=== PATIENT | female | born 1935 | race Caucasian/White ===

== ENCOUNTER 2017-03-04 11:36 | Emergency (ER) | payer OTHER ==
[2017-03-04 11:36] VITALS: O2SAT 98
[2017-03-04] MEDS ORDERED: SODIUM CHLORIDE 0.9% 1000ML 1,000 ML IV ONE ×2 (12:13→12:14)
[2017-03-04 12:30] LABS: BASOPHILS % (AUTO) 2 % (0-3); EOSINOPHILS % (AUTO) 1 % (0-9); HEMATOCRIT 34 % (35-47); MEAN CORPUSCULAR HGB CONC 33.3 gm/dl (32.0-36.0); MONOCYTES % (AUTO) 11.9 % (0-12); NEUTROPHILS % (AUTO) 79.1 % (37-80)
[2017-03-04 12:31] LABS: MEAN CORPUSCULAR VOLUME 100 fL (81-99)
[2017-03-04 12:40] LABS: ALBUMIN 3.1 gm/dl (3.4-5.0); CALCIUM 8.7 mg/dl (8.5-10.1); POTASSIUM 4.1 mMol/L (3.5-5.1)
[2017-03-04 13:02] LABS: APPEARANCE,URINE Clear; BILIRUBIN,URINE 2+ (NEGATIVE); COLOR,URINE Dark yellow; GLUCOSE, URINE (UA) NEGATIVE (NEGATIVE); KETONES,URINE NEGATIVE (NEGATIVE); LEUKOCYTE ESTERASE ,URINE NEGATIVE (NEGATIVE); NITRATE,URINE NEGATIVE (NEGATIVE); OCCULT BLOOD,URINE NEGATIVE (NEG-TRACE); PH,URINE 5.5; UROBILINOGEN,URINE 0.2 (0.2-1.0 EU)
[2017-03-04 13:07] LABS: ICTOTEST,URINE POSITIVE (NEGATIVE); RBC,URINE 0-2 (0-3AV/HPF); WBC,URINE 0-2 (0-5AV/HPF)
[2017-03-04] MEDS ORDERED: KETOROLAC TROMETHAMINE 30 MG/ML SOL IV ONE (13:32)
[2017-03-04] MEDS ORDERED: KETOROLAC TROMETHAMINE 30 MG/ML SOL ONE (13:34)
[2017-03-04 16:14] VITALS: TEMP 98.4
[2017-03-04] MEDS ORDERED: MORPHINE SULFATE 10 MG/ML SOL IV ONE (16:17)
[2017-03-04] MEDS ORDERED: MORPHINE SULFATE 10 MG/ML SOL ONE (16:18)
[2017-03-04] MEDS ORDERED: DIPHENHYDRAMINE 25 MG CAP PO ONE (16:36)
[2017-03-04] MEDS ORDERED: DIPHENHYDRAMINE 25 MG CAP ONE (16:36)
[2017-03-04 18:54] VITALS: PULSE 68; RESP 18
[2017-03-04 20:19] VITALS: BP 127/70
== END 2017-03-04 16:40 | disposition short-term general hospital (02) | DRG 445 ==
LOC: ED 11:36
DX: K83.1 Obstruction of bile duct (principal); C25.9 Malignant neoplasm of pancreas, unspecified
CPT/HCPCS: 36415; 74178; 80053; 81001; 82150; 85025; 99285; J1885; J2270; Q9967

== ENCOUNTER 2017-03-21 09:19 | Inpatient (IN) | payer OTHER ==
[2017-03-21] MEDS ORDERED: SODIUM CHLORIDE 0.9% 1000 ML SOL IV SCH (09:45)
[2017-03-21 09:47] LABS: BASOPHILS % (AUTO) 1 % (0-3); EOSINOPHILS % (AUTO) 2 % (0-9); HEMATOCRIT 34 % (35-47); MEAN CORPUSCULAR HGB CONC 35.1 gm/dl (32.0-36.0); MEAN CORPUSCULAR VOLUME 96 fL (81-99); MONOCYTES % (AUTO) 11.3 % (0-12); NEUTROPHILS % (AUTO) 83.1 % (37-80)
[2017-03-21 10:01] LABS: CALCIUM 8.4 mg/dl (8.5-10.1); POTASSIUM 3.5 mMol/L (3.5-5.1)
[2017-03-21] MEDS: SODIUM CHLORIDE 0.9% FLUSH 10 ML SOL IV PRN ×4 (10:36→23:48)
[2017-03-21] MEDS ORDERED: KETOROLAC TROMETHAMINE 30 MG/ML SOL IV ONE (10:37)
[2017-03-21] MEDS ORDERED: KETOROLAC TROMETHAMINE 30 MG/ML SOL ONE (10:38)
[2017-03-21] MEDS ORDERED: MORPHINE SULFATE 10 MG/ML SOL IV PRN (14:27)
[2017-03-21] MEDS ORDERED: TRAMADOL HYDROCHLORIDE 50 MG TAB PO PRN ×2 (14:29→17:15)
[2017-03-21] MEDS ORDERED: LORAZEPAM 2 MG/ML SOL IV PRN (14:29)
[2017-03-21] MEDS ORDERED: MAGNESIUM HYDROXIDE 30 ML SUS PO PRN (14:30)
[2017-03-21] MEDS ORDERED: MORPHINE SULFATE 10 MG/ML SOL ONE (14:53)
[2017-03-21] MEDS: ONDANSETRON HCL 4 MG/2 ML SOL IV PRN (14:59)
[2017-03-21] MEDS: DEXTROSE/SALINE 0.45/KCL 20MEQ 1,000 ML/1,000 ML SOL IV SCH ×2 (15:08→23:49)
[2017-03-21] MEDS ORDERED: ACETAMINOPHEN 325 MG PO PRN (17:15)
[2017-03-21] MEDS ORDERED: ALUMINUM/MAGNESIUM 30 ML SUS PO PRN (17:17)
[2017-03-21] MEDS: MORPHINE SULFATE 10 MG/ML SOL IV PRN (21:01)
[2017-03-21] MEDS: LORAZEPAM 0.5 MG TAB PO SCH (21:20)
[2017-03-21] MEDS: ZOLPIDEM TARTRATE 5 MG TAB PO SCH (21:20)
[2017-03-21] MEDS ORDERED: NICOTINE 21 MG PATCH ONE (22:31)
[2017-03-22 07:28] LABS: BASOPHILS % (AUTO) 2 % (0-3); EOSINOPHILS % (AUTO) 2 % (0-9); HEMATOCRIT 30 % (35-47); MEAN CORPUSCULAR HGB CONC 34.5 gm/dl (32.0-36.0); MEAN CORPUSCULAR VOLUME 94 fL (81-99); NEUTROPHILS % (AUTO) 75.8 % (37-80)
[2017-03-22 07:29] LABS: ALBUMIN 2.3 gm/dl (3.4-5.0); CALCIUM 7.7 mg/dl (8.5-10.1); POTASSIUM 3.8 mMol/L (3.5-5.1)
[2017-03-22] MEDS: SODIUM CHLORIDE 0.9% FLUSH 10 ML SOL IV PRN ×4 (08:07→22:11)
[2017-03-22] MEDS: KETOROLAC TROMETHAMINE 30 MG/ML SOL IV PRN ×2 (08:07→16:25)
[2017-03-22] MEDS: MORPHINE SULFATE 15 MG ER TAB PO SCH (09:01)
[2017-03-22] MEDS: ALPHA D GALACTOSIDASE PO PRN ×2 (09:04→20:00)
[2017-03-22] MEDS ORDERED: BISACODYL 5 MG TAB ECT PO PRN (09:30)
[2017-03-22] MEDS: POLYETHYLENE GLYCOL 17 GM/1 TBS PDS PO SCH ×2 (10:14→17:31)
[2017-03-22] MEDS: MORPHINE SULFATE 10 MG/ML SOL IV PRN ×2 (20:14→22:11)
[2017-03-22] MEDS: LORAZEPAM 0.5 MG TAB PO SCH (22:10)
[2017-03-22] MEDS: ZOLPIDEM TARTRATE 5 MG TAB PO SCH (22:11)
[2017-03-23] MEDS: MORPHINE SULFATE 10 MG/ML SOL IV PRN ×3 (03:23→21:29)
[2017-03-23] MEDS: SODIUM CHLORIDE 0.9% FLUSH 10 ML SOL IV PRN ×3 (03:23→21:32)
[2017-03-23] MEDS: KETOROLAC TROMETHAMINE 30 MG/ML SOL IV PRN (06:04)
[2017-03-23] MEDS: ALPHA D GALACTOSIDASE PO PRN (08:40)
[2017-03-23] MEDS ORDERED: MELOXICAM 15 MG TAB PO SCH (09:00)
[2017-03-23] MEDS: MORPHINE SULFATE 15 MG ER TAB PO SCH ×4 (09:00→22:31)
[2017-03-23] MEDS: POLYETHYLENE GLYCOL 17 GM/1 TBS PDS PO SCH (09:03)
[2017-03-23] MEDS: ZOLPIDEM TARTRATE 5 MG TAB PO SCH ×2 (21:29→22:31)
[2017-03-23] MEDS: LORAZEPAM 0.5 MG TAB PO SCH ×2 (21:29→22:30)
[2017-03-23] MEDS: ONDANSETRON HCL 4 MG/2 ML SOL IV PRN (21:43)
[2017-03-24] MEDS: ALPHA D GALACTOSIDASE PO PRN (08:11)
[2017-03-24] MEDS: SODIUM CHLORIDE 0.9% FLUSH 10 ML SOL IV PRN ×2 (08:22→20:38)
[2017-03-24] MEDS: ONDANSETRON HCL 4 MG/2 ML SOL IV PRN (08:22)
[2017-03-24] MEDS: MORPHINE SULFATE 10 MG/ML SOL IV PRN (08:22)
[2017-03-24] MEDS ORDERED: PATIENT EDUCATION 1 MISC PRN (08:51)
[2017-03-24] MEDS: POLYETHYLENE GLYCOL 17 GM/1 TBS PDS PO SCH (09:25)
[2017-03-24] MEDS: MORPHINE SULFATE 10 MG/5 ML SOL PO SCH ×3 (10:07→20:54)
[2017-03-24] MEDS: LORAZEPAM 0.5 MG TAB PO SCH (20:35)
[2017-03-24] MEDS: ZOLPIDEM TARTRATE 5 MG TAB PO SCH (20:35)
[2017-03-25] MEDS: MORPHINE SULFATE 10 MG/5 ML SOL PO SCH ×2 (03:09→09:12)
[2017-03-25 07:55] VITALS: BP 87/44; PULSE 69; RESP 18; TEMP 98.8; O2SAT 92
[2017-03-25] MEDS: POLYETHYLENE GLYCOL 17 GM/1 TBS PDS PO SCH (08:34)
== END 2017-03-25 09:30 | disposition home or self-care (01) | DRG 948 ==
LOC: ED 09:19 → ACUTE CARE 14:21 → UNDOADMIN 14:21 → ACUTE CARE 14:25
PROVIDERS: ADMIT Emergency Medicine; ATTEND Family Medicine
DX: G89.3 Neoplasm related pain (acute) (chronic) (principal); C25.9 Malignant neoplasm of pancreas, unspecified; C79.9 Secondary malignant neoplasm of unspecified site; C25.0 Malignant neoplasm of head of pancreas; K59.03 Drug induced constipation; R12 Heartburn; E03.9 Hypothyroidism, unspecified
CPT/HCPCS: 36415; 74020; 80048; 80053; 85025; 96365; 96374; 99284; J1885; J2060; J2270; J2405